=== PATIENT | female | born 1945 | race Caucasian/White ===

== ENCOUNTER 2017-04-02 11:32 | Day surgery (SDC) | payer MEDICAID, OTHER ==
[~2017-04-02] VITALS: Ht 154.9 cm; Wt 64.3 kg
[~2017-04-02 11:32] MED LIST: AMLO-511 PO; CITA20TA9 PO; DICY10 PO; PRAV20TA4 PO; SODIUM CHLORIDE 0.9% 1,000 ML IV ONE
[2017-04-02] MEDS ORDERED: METOCLOPRAMIDE HCL 5 MG/ML 2 ML VIAL IVP ONE (11:33)
[2017-04-02] MEDS ORDERED: PROPOFOL 1% 20 ML VIAL IVP ONE (11:33)
[2017-04-02] MEDS ORDERED: LIDOCAINE HCL/PF 2% 5 ML VIAL IM ONE (11:33)
== END 2017-04-02 14:55 | disposition home or self-care (01) ==
LOC: SURGERY 11:32
PROVIDERS: ATTEND Internal Medicine Gastroenterology
DX: K63.5 Polyp of colon (principal); K62.1 Rectal polyp; F41.9 Anxiety disorder, unspecified; I10 Essential (primary) hypertension; M19.90 Unspecified osteoarthritis, unspecified site; E78.5 Hyperlipidemia, unspecified; F32.9 Major depressive disorder, single episode, unspecified
CPT/HCPCS: 45380; 45385; 88305; 93005; C1769; J2704; J2765; J3490; J7030

== ENCOUNTER 2017-04-16 11:09 | Day surgery (SDC) | payer MEDICAID, OTHER ==
[~2017-04-16] VITALS: Ht 152.4 cm; Wt 63.8 kg
[~2017-04-16 11:09] MED LIST changes: -SODIUM CHLORIDE 0.9% 1,000 ML IV ONE
[2017-04-16] MEDS ORDERED: SODIUM CHLORIDE 0.9% 1,000 ML IV ONE ×2 (11:21→12:00)
== END 2017-04-16 15:15 | disposition home or self-care (01) ==
LOC: SURGERY 11:09
PROVIDERS: ATTEND Internal Medicine Gastroenterology
DX: K29.70 Gastritis, unspecified, without bleeding (principal); K44.9 Diaphragmatic hernia without obstruction or gangrene; K21.9 Gastro-esophageal reflux disease without esophagitis; I10 Essential (primary) hypertension; F41.9 Anxiety disorder, unspecified; F32.9 Major depressive disorder, single episode, unspecified; Z72.89 Other problems related to lifestyle; Z87.891 Personal history of nicotine dependence
CPT/HCPCS: 43239; 88305; 88312; 88313; J7030